=== PATIENT | female | born 1940 | race Caucasian/White ===

== ENCOUNTER 2022-06-04 14:29 | Inpatient (IN) | payer OTHER ==
[~2022-06-04] VITALS: Ht 149.9 cm; Wt 51.3 kg
[2022-06-04 14:31] VITALS: BP_SYST 160
[2022-06-04] MEDS ORDERED: NACL 0.9% 1,000 ML IV ONE (16:45)
[2022-06-04 17:35] LABS: BILIRUBIN,URINE NEGATIVE (NEGATIVE); BLOOD, URINE 1+ (NEGATIVE); CLARITY/URINE CLEAR (CLEAR); COLOR,URINE YELLOW (YELLOW); GLUCOSE,URINE NEGATIVE (NEGATIVE); KETONES,URINE NEGATIVE (NEGATIVE); LEUKOCYTE ESTERASE ,URINE NEGATIVE (NEGATIVE); NITRITE, URINE NEGATIVE (NEGATIVE); PROTEIN URINE NEGATIVE (NEGATIVE)
[2022-06-04 18:22] LABS: BACTERIA,URINE None Seen /HPF (None Seen); MUCUS,URINE None Seen /LPF (None Seen); WBC,URINE 0-3 /HPF (0-3)
[2022-06-04 18:23] LABS: CALCIUM OXALATE CRYSTALS,UR 0-10 /HPF (None Seen)
[2022-06-04 19:02] LABS: HEMOGLOBIN 10.9 g/dL (12.0-16.0); MEAN CORPUSCULAR HEMOGLOBIN 30 pg (27-31); MEAN CORPUSCULAR HGB CONC 31 % (32-36); MEAN CORPUSCULAR VOLUME 96 fL (79.0-98.0); PLATELET COUNT (AUTO) 159 K/uL (130-430); RED BLOOD CELL COUNT(AUTO) 3.65 MIL/uL (4.2-6.2); RED CELL DISTRIBUTION WIDTH 18.7 % (9.0-15.0); WHITE BLOOD COUNT (AUTO) 28.3 K/uL (4.8-10.8)
[2022-06-04 19:25] LABS: ANION GAP 10 (5-15); CALCIUM 9.4 mg/dL (8.4-11.0); CHLORIDE 107 mmol/L (98-107); CREATININE 0.83 mg/dL (0.55-1.30); GLUCOSE 94 mg/dL (70-99); UREA NITROGEN, BLOOD 14 mg/dL (8-21)
[2022-06-04 19:31] LABS: ALANINE AMINOTRANSFERASE 10 U/L (12-78); ALBUMIN 3.3 g/dL (3.4-4.8); ASPARTATE AMINOTRANSFERASE 17 U/L (10-37); TOTAL BILIRUBIN 1.3 mg/dL (0.0-1.0)
[2022-06-04 19:37] LABS: BAND % (MANUAL) 2 % (0-6); BASOPHILS % (MANUAL) 0 % (0-2); EOSINOPHILS % (MANUAL) 0 % (0-7); LYMPHOCYTES % (MANUAL) 5 % (20-46); MONOCYTES % (MANUAL) 2 % (0-11)
[2022-06-04 19:39] LABS: ATYPICAL LYMPHOCYTES % 81 % (0-0)
[2022-06-04] MEDS ORDERED: MEROPENEM 1 GM IVPB PREMIX 50 ML IV ONE (20:15)
[2022-06-04] MEDS ORDERED: VANCOMYCIN HCL 1,000 MG in NS 250 ML IV ONE (20:15)
[2022-06-04 20:40] VITALS: BP_SYST 163
[2022-06-04] MEDS ORDERED: VANCOMYCIN HCL 1000 MG/VIAL IV ONE (21:25)
[2022-06-04] MEDS ORDERED: MEROPENEM 500 MG VIAL IV ONE (21:26)
[2022-06-04] MEDS ORDERED: ALBUTEROL SULFATE 0.083% 2.5 MG/3 ML VIAL.NEB INH PRN (22:15)
[2022-06-05 00:19] VITALS: BP_SYST 159
[2022-06-05 11:24] VITALS: BP_SYST 156
[2022-06-05] MEDS ORDERED: DIATR MEGLU/DIATRIZ SOD 30 ML SOLUTION PO ONE (12:33)
[2022-06-05 15:30] VITALS: BP_SYST 152
[2022-06-05] MEDS ORDERED: BENA10TA73 PO (18:12)
[2022-06-05] MEDS ORDERED: ATEN-41 PO (18:15)
[2022-06-05] MEDS ORDERED: ALLO300T2 PO (18:15)
[2022-06-05] MEDS ORDERED: IBRU420T PO (18:15)
[2022-06-05 20:00] VITALS: BP_SYST 177
[2022-06-05] MEDS ORDERED: ATENOLOL 25 MG TABLET(TENORMIN) PO ONE (20:30)
[2022-06-05] MEDS: cefTRIAXone 1 GM in D5W 50 ML IV SCH (20:54)
[2022-06-05] MEDS: NACL 0.9% 1,000 ML IV SCH (21:15)
[2022-06-06] VITALS: BP_SYST 169
[2022-06-06] MEDS: NACL 0.9% 1,000 ML IV SCH ×2 (05:00→15:59)
[2022-06-06 07:10] LABS: BASOPHILS # (AUTO) 0.2 K/uL (0.0-0.2); BASOPHILS % (AUTO) 0.7 % (0.0-2.0); EOSINOPHILS # (AUTO) 0.2 K/uL (0.0-0.4); EOSINOPHILS % (AUTO) 0.8 % (0.0-4.0); HEMATOCRIT 32.3 % (36-48); HEMOGLOBIN 10.3 g/dL (12.0-16.0); LYMPHOCYTES # (AUTO) 18.4 K/uL (1.0-5.5); MEAN CORPUSCULAR HEMOGLOBIN 30 pg (27-31); MEAN CORPUSCULAR HGB CONC 32 % (32-36); MEAN CORPUSCULAR VOLUME 95 fL (79.0-98.0); MONOCYTES # (AUTO) 0.3 K/uL (0.0-1.0); MONOCYTES % (AUTO) 1.6 % (1.7-9.3); NEUTROPHILS # (AUTO) 2.1 K/uL (1.8-7.7); NEUTROPHILS % (AUTO) 9.7 % (40.0-70.0); PLATELET COUNT (AUTO) 163 K/uL (130-430); RED BLOOD CELL COUNT(AUTO) 3.41 MIL/uL (4.2-6.2); RED CELL DISTRIBUTION WIDTH 18.8 % (9.0-15.0); WHITE BLOOD COUNT (AUTO) 21.1 K/uL (4.8-10.8)
[2022-06-06 07:25] LABS: ANION GAP 13 (5-15); CALCIUM 8.3 mg/dL (8.4-11.0); CHLORIDE 107 mmol/L (98-107); CREATININE 0.93 mg/dL (0.55-1.30); GLUCOSE 73 mg/dL (70-99); UREA NITROGEN, BLOOD 14 mg/dL (8-21)
[2022-06-06 08:07] VITALS: BP_SYST 139
[2022-06-06 08:26] VITALS: BP_SYST 173
[2022-06-06 08:46] LABS: LYMPHOCYTES % (AUTO) 87.2 % (20.5-51.5)
[2022-06-06] MEDS ORDERED: BENAZEPRIL HCL Non-Formulary 10 MG TABLET PO SCH (09:00)
[2022-06-06] MEDS ORDERED: POTASSIUM CHLORIDE 20 MEQ/PKT PACKET PO ONE (10:45)
[2022-06-06 11:23] VITALS: BP_SYST 158
[2022-06-06 15:26] VITALS: BP_SYST 161
[2022-06-06 20:00] VITALS: BP_SYST 162
[2022-06-06] MEDS: cefTRIAXone 1 GM in D5W 50 ML IV SCH (20:21)
[2022-06-06] MEDS: ALLOPURINOL 300 MG TABLET (ZYLOPRIM) PO SCH (20:22)
[2022-06-06] MEDS: LISINOPRIL 10 MG TABLET (PRINIVIL) PO SCH (20:22)
[2022-06-06] MEDS: ATENOLOL 25 MG TABLET(TENORMIN) PO SCH (20:22)
[2022-06-07] VITALS: BP_SYST 159
[2022-06-07] MEDS: NACL 0.9% 1,000 ML IV SCH ×3 (01:00→21:00)
[2022-06-07 05:32] LABS: BILIRUBIN,URINE NEGATIVE (NEGATIVE); CLARITY/URINE CLEAR (CLEAR); COLOR,URINE YELLOW (YELLOW); GLUCOSE,URINE NEGATIVE (NEGATIVE); KETONES,URINE 2+ (NEGATIVE); LEUKOCYTE ESTERASE ,URINE NEGATIVE (NEGATIVE); NITRITE, URINE NEGATIVE (NEGATIVE); PROTEIN URINE NEGATIVE (NEGATIVE); UROBILINOGEN,URINE 0.2 (0.2-1.0)
[2022-06-07 05:37] LABS: BLOOD, URINE TRACE (NEGATIVE)
[2022-06-07 05:40] LABS: BACTERIA,URINE None Seen /HPF (None Seen); WBC,URINE 0-3 /HPF (0-3)
[2022-06-07 07:43] LABS: BASOPHILS # (AUTO) 0.1 K/uL (0.0-0.2); BASOPHILS % (AUTO) 0.4 % (0.0-2.0); EOSINOPHILS # (AUTO) 0.1 K/uL (0.0-0.4); EOSINOPHILS % (AUTO) 0.8 % (0.0-4.0); HEMATOCRIT 32.7 % (36-48); HEMOGLOBIN 10.5 g/dL (12.0-16.0); LYMPHOCYTES # (AUTO) 14.1 K/uL (1.0-5.5); LYMPHOCYTES % (AUTO) 83.4 % (20.5-51.5); MEAN CORPUSCULAR HEMOGLOBIN 30 pg (27-31); MEAN CORPUSCULAR HGB CONC 32 % (32-36); MEAN CORPUSCULAR VOLUME 95 fL (79.0-98.0); MONOCYTES # (AUTO) 0.4 K/uL (0.0-1.0); MONOCYTES % (AUTO) 2.1 % (1.7-9.3); NEUTROPHILS # (AUTO) 2.3 K/uL (1.8-7.7); NEUTROPHILS % (AUTO) 13.3 % (40.0-70.0); PLATELET COUNT (AUTO) 175 K/uL (130-430); RED BLOOD CELL COUNT(AUTO) 3.45 MIL/uL (4.2-6.2); RED CELL DISTRIBUTION WIDTH 18.1 % (9.0-15.0); RETICULOCYTE COUNT 2.1 % (0.5-1.5)
[2022-06-07 07:57] LABS: ANION GAP 9 (5-15); CHLORIDE 108 mmol/L (98-107); CREATININE 0.75 mg/dL (0.55-1.30); GLUCOSE 77 mg/dL (70-99); UREA NITROGEN, BLOOD 12 mg/dL (8-21)
[2022-06-07 08:10] VITALS: BP_SYST 165
[2022-06-07] MEDS: ALLOPURINOL 300 MG TABLET (ZYLOPRIM) PO SCH (08:50)
[2022-06-07] MEDS: ATENOLOL 25 MG TABLET(TENORMIN) PO SCH (08:51)
[2022-06-07] MEDS: LISINOPRIL 10 MG TABLET (PRINIVIL) PO SCH (08:51)
[2022-06-07] MEDS ORDERED: POTASSIUM CHLORIDE 20 MEQ/PKT PACKET PO ONE (11:00)
[2022-06-07 11:36] LABS: TOTAL IRON BIND. CAPACITY 251 ug/dL (250-450)
[2022-06-07 11:38] VITALS: BP_SYST 160
[2022-06-07 15:22] VITALS: BP_SYST 146
[2022-06-07 20:00] VITALS: BP_SYST 159
[2022-06-07] MEDS: cefTRIAXone 1 GM in D5W 50 ML IV SCH (20:01)
[2022-06-08 00:21] VITALS: BP_SYST 165
[2022-06-08] MEDS: NACL 0.9% 1,000 ML IV SCH (06:47)
[2022-06-08 07:06] LABS: BASOPHILS % (AUTO) 0.3 % (0.0-2.0); EOSINOPHILS # (AUTO) 0.2 K/uL (0.0-0.4); EOSINOPHILS % (AUTO) 1.5 % (0.0-4.0); HEMATOCRIT 31.2 % (36-48); HEMOGLOBIN 10.1 g/dL (12.0-16.0); LYMPHOCYTES # (AUTO) 9.9 K/uL (1.0-5.5); LYMPHOCYTES % (AUTO) 81.6 % (20.5-51.5); MEAN CORPUSCULAR HEMOGLOBIN 30 pg (27-31); MEAN CORPUSCULAR HGB CONC 32 % (32-36); MEAN CORPUSCULAR VOLUME 94 fL (79.0-98.0); MONOCYTES # (AUTO) 0.3 K/uL (0.0-1.0); MONOCYTES % (AUTO) 2.5 % (1.7-9.3); NEUTROPHILS # (AUTO) 1.7 K/uL (1.8-7.7); PLATELET COUNT (AUTO) 170 K/uL (130-430); RED BLOOD CELL COUNT(AUTO) 3.32 MIL/uL (4.2-6.2); RED CELL DISTRIBUTION WIDTH 18.6 % (9.0-15.0); WHITE BLOOD COUNT (AUTO) 12.1 K/uL (4.8-10.8)
[2022-06-08 07:24] LABS: ANION GAP 8 (5-15); CALCIUM 8.5 mg/dL (8.4-11.0); CHLORIDE 111 mmol/L (98-107); CREATININE 0.78 mg/dL (0.55-1.30); GLUCOSE 90 mg/dL (70-99); UREA NITROGEN, BLOOD 12 mg/dL (8-21)
[2022-06-08 09:19] VITALS: BP_SYST 165
[2022-06-08] MEDS: ALLOPURINOL 300 MG TABLET (ZYLOPRIM) PO SCH (09:41)
[2022-06-08] MEDS: ATENOLOL 25 MG TABLET(TENORMIN) PO SCH (09:42)
[2022-06-08] MEDS: lisinopriL 20 MG TABLET PO SCH (09:42)
[2022-06-08] MEDS ORDERED: POTASSIUM CHLORIDE 20 MEQ/PKT PACKET PO ONE (10:15)
[2022-06-08 11:23] VITALS: BP_SYST 156
[2022-06-08 14:35] LABS: NEUTROPHILS % (AUTO) 14.1 % (40.0-70.0)
[2022-06-08 15:24] VITALS: BP_SYST 146
[2022-06-08] MEDS: cefTRIAXone 1 GM in D5W 50 ML IV SCH (20:53)
[2022-06-09 01:06] LABS: FOLATE (FOLIC ACID) 9.7 ng/mL (>3.0)
[2022-06-09 01:14] VITALS: BP_SYST 157
[2022-06-09] MEDS: lisinopriL 20 MG TABLET PO SCH (10:31)
[2022-06-09] MEDS: ATENOLOL 25 MG TABLET(TENORMIN) PO SCH (10:36)
[2022-06-09] MEDS: ALLOPURINOL 300 MG TABLET (ZYLOPRIM) PO SCH (10:37)
[2022-06-09 14:06] LABS: BASOPHILS # (AUTO) 0.1 K/uL (0.0-0.2); BASOPHILS % (AUTO) 0.7 % (0.0-2.0); EOSINOPHILS # (AUTO) 0.1 K/uL (0.0-0.4); EOSINOPHILS % (AUTO) 0.4 % (0.0-4.0); HEMATOCRIT 33.8 % (36-48); HEMOGLOBIN 10.8 g/dL (12.0-16.0); LYMPHOCYTES # (AUTO) 9.7 K/uL (1.0-5.5); MEAN CORPUSCULAR HEMOGLOBIN 30 pg (27-31); MEAN CORPUSCULAR HGB CONC 32 % (32-36); MEAN CORPUSCULAR VOLUME 93 fL (79.0-98.0); MONOCYTES # (AUTO) 0.4 K/uL (0.0-1.0); MONOCYTES % (AUTO) 3.3 % (1.7-9.3); NEUTROPHILS # (AUTO) 2.3 K/uL (1.8-7.7); NEUTROPHILS % (AUTO) 18.6 % (40.0-70.0); PLATELET COUNT (AUTO) 184 K/uL (130-430); RED BLOOD CELL COUNT(AUTO) 3.63 MIL/uL (4.2-6.2); RED CELL DISTRIBUTION WIDTH 18.3 % (9.0-15.0); WHITE BLOOD COUNT (AUTO) 12.6 K/uL (4.8-10.8)
[2022-06-09 14:37] LABS: ANION GAP 9 (5-15); CALCIUM 8.8 mg/dL (8.4-11.0); CHLORIDE 105 mmol/L (98-107); CREATININE 0.83 mg/dL (0.55-1.30); GLUCOSE 117 mg/dL (70-99); UREA NITROGEN, BLOOD 12 mg/dL (8-21)
[2022-06-09 15:22] VITALS: BP_SYST 158
[2022-06-09 20:00] VITALS: BP_SYST 156
[2022-06-09] MEDS: cefTRIAXone 1 GM in D5W 50 ML IV SCH (20:26)
[2022-06-10 00:05] VITALS: BP_SYST 185
[2022-06-10 04:00] VITALS: BP_SYST 138
[2022-06-10 07:00] LABS: BASOPHILS # (AUTO) 0.1 K/uL (0.0-0.2); BASOPHILS % (AUTO) 0.4 % (0.0-2.0); EOSINOPHILS # (AUTO) 0.1 K/uL (0.0-0.4); EOSINOPHILS % (AUTO) 0.5 % (0.0-4.0); HEMOGLOBIN 10.3 g/dL (12.0-16.0); LYMPHOCYTES # (AUTO) 9.3 K/uL (1.0-5.5); MEAN CORPUSCULAR HEMOGLOBIN 30 pg (27-31); MEAN CORPUSCULAR HGB CONC 32 % (32-36); MEAN CORPUSCULAR VOLUME 93 fL (79.0-98.0); MONOCYTES # (AUTO) 0.5 K/uL (0.0-1.0); MONOCYTES % (AUTO) 4.2 % (1.7-9.3); NEUTROPHILS % (AUTO) 16.9 % (40.0-70.0); PLATELET COUNT (AUTO) 190 K/uL (130-430); RED BLOOD CELL COUNT(AUTO) 3.45 MIL/uL (4.2-6.2); RED CELL DISTRIBUTION WIDTH 18.2 % (9.0-15.0)
[2022-06-10 07:28] LABS: ANION GAP 10 (5-15); CALCIUM 8.2 mg/dL (8.4-11.0); CHLORIDE 103 mmol/L (98-107); CREATININE 0.82 mg/dL (0.55-1.30); GLUCOSE 109 mg/dL (70-99); UREA NITROGEN, BLOOD 13 mg/dL (8-21)
[2022-06-10] MEDS: ALLOPURINOL 300 MG TABLET (ZYLOPRIM) PO SCH (09:18)
[2022-06-10] MEDS: lisinopriL 20 MG TABLET PO SCH (09:19)
[2022-06-10] MEDS: ATENOLOL 25 MG TABLET(TENORMIN) PO SCH (09:20)
[2022-06-10 11:24] VITALS: BP_SYST 125
[2022-06-10 15:34] VITALS: BP_SYST 130
[2022-06-10 20:36] VITALS: BP_SYST 156
[2022-06-10] MEDS: cefTRIAXone 1 GM in D5W 50 ML IV SCH (21:47)
[2022-06-11 00:09] VITALS: BP_SYST 147
[2022-06-11 06:52] LABS: BASOPHILS % (AUTO) 0.3 % (0.0-2.0); EOSINOPHILS # (AUTO) 0.2 K/uL (0.0-0.4); EOSINOPHILS % (AUTO) 1.4 % (0.0-4.0); HEMATOCRIT 34.9 % (36-48); HEMOGLOBIN 11.2 g/dL (12.0-16.0); LYMPHOCYTES # (AUTO) 9.9 K/uL (1.0-5.5); LYMPHOCYTES % (AUTO) 79.2 % (20.5-51.5); MEAN CORPUSCULAR HEMOGLOBIN 30 pg (27-31); MEAN CORPUSCULAR HGB CONC 32 % (32-36); MEAN CORPUSCULAR VOLUME 93 fL (79.0-98.0); MONOCYTES # (AUTO) 0.4 K/uL (0.0-1.0); MONOCYTES % (AUTO) 3.5 % (1.7-9.3); NEUTROPHILS # (AUTO) 1.9 K/uL (1.8-7.7); NEUTROPHILS % (AUTO) 15.6 % (40.0-70.0); PLATELET COUNT (AUTO) 205 K/uL (130-430); RED BLOOD CELL COUNT(AUTO) 3.76 MIL/uL (4.2-6.2); RED CELL DISTRIBUTION WIDTH 17.9 % (9.0-15.0); WHITE BLOOD COUNT (AUTO) 12.5 K/uL (4.8-10.8)
[2022-06-11 07:58] LABS: ANION GAP 8 (5-15); CHLORIDE 106 mmol/L (98-107); CREATININE 0.75 mg/dL (0.55-1.30); GLUCOSE 90 mg/dL (70-99); UREA NITROGEN, BLOOD 11 mg/dL (8-21)
[2022-06-11 08:49] LABS: C-REACTIVE PROTEIN QUANT < 0.2 mg/dL (0-0.5)
[2022-06-11] MEDS: ATENOLOL 25 MG TABLET(TENORMIN) PO SCH ×2 (09:21→09:29)
[2022-06-11] MEDS: ALLOPURINOL 300 MG TABLET (ZYLOPRIM) PO SCH (09:27)
[2022-06-11] MEDS: lisinopriL 20 MG TABLET PO SCH (09:30)
[2022-06-11 10:39] LABS: ERYTHROCYTE SEDIMENTATION RATE 9 MM/HR (0-20)
[2022-06-11 11:27] VITALS: BP_SYST 141
[2022-06-11] MEDS ORDERED: POTASSIUM CHLORIDE 20 MEQ/PKT PACKET PO ONE (14:00)
[2022-06-11 15:15] VITALS: BP_SYST 136
[2022-06-11 20:00] VITALS: BP_SYST 126
[2022-06-11] MEDS: cefTRIAXone 1 GM in D5W 50 ML IV SCH (21:00)
[2022-06-12 00:05] VITALS: BP_SYST 128
[2022-06-12 06:57] LABS: BASOPHILS % (AUTO) 0.4 % (0.0-2.0); EOSINOPHILS # (AUTO) 0.2 K/uL (0.0-0.4); EOSINOPHILS % (AUTO) 1.5 % (0.0-4.0); HEMATOCRIT 33.9 % (36-48); HEMOGLOBIN 10.9 g/dL (12.0-16.0); LYMPHOCYTES # (AUTO) 8.7 K/uL (1.0-5.5); LYMPHOCYTES % (AUTO) 76.1 % (20.5-51.5); MEAN CORPUSCULAR HEMOGLOBIN 30 pg (27-31); MEAN CORPUSCULAR HGB CONC 32 % (32-36); MEAN CORPUSCULAR VOLUME 93 fL (79.0-98.0); MONOCYTES # (AUTO) 0.6 K/uL (0.0-1.0); MONOCYTES % (AUTO) 4.9 % (1.7-9.3); NEUTROPHILS % (AUTO) 17.1 % (40.0-70.0); PLATELET COUNT (AUTO) 222 K/uL (130-430); RED BLOOD CELL COUNT(AUTO) 3.64 MIL/uL (4.2-6.2); RED CELL DISTRIBUTION WIDTH 18.6 % (9.0-15.0); WHITE BLOOD COUNT (AUTO) 11.5 K/uL (4.8-10.8)
[2022-06-12 07:39] LABS: ALANINE AMINOTRANSFERASE 14 U/L (12-78); ANION GAP 9 (5-15); ASPARTATE AMINOTRANSFERASE 14 U/L (10-37); C-REACTIVE PROTEIN QUANT 0.3 mg/dL (0-0.5); CALCIUM 8.9 mg/dL (8.4-11.0); CHLORIDE 104 mmol/L (98-107); CREATININE 0.85 mg/dL (0.55-1.30); GLUCOSE 97 mg/dL (70-99); TOTAL BILIRUBIN 0.4 mg/dL (0.0-1.0); UREA NITROGEN, BLOOD 16 mg/dL (8-21)
[2022-06-12 08:15] VITALS: BP_SYST 145
[2022-06-12] MEDS: ALLOPURINOL 300 MG TABLET (ZYLOPRIM) PO SCH (08:23)
[2022-06-12] MEDS: lisinopriL 20 MG TABLET PO SCH (08:23)
[2022-06-12 11:41] LABS: ERYTHROCYTE SEDIMENTATION RATE 13 MM/HR (0-20)
[2022-06-12 13:27] VITALS: BP_SYST 118
[2022-06-12 18:10] VITALS: BP_SYST 137
[2022-06-12 20:00] VITALS: BP_SYST 124
[2022-06-12] MEDS ORDERED: cefTRIAXone 1 GM in D5W 50 ML IV SCH (21:00)
[2022-06-12 23:45] VITALS: BP_SYST 123
[2022-06-13 08:36] VITALS: BP_SYST 123
[2022-06-13] MEDS: ALLOPURINOL 300 MG TABLET (ZYLOPRIM) PO SCH (08:55)
[2022-06-13] MEDS: lisinopriL 20 MG TABLET PO SCH (08:56)
[2022-06-13] MEDS: ATENOLOL 25 MG TABLET(TENORMIN) PO SCH (08:56)
[2022-06-13 11:29] VITALS: BP_SYST 142
[2022-06-13 15:08] VITALS: BP_SYST 142
[2022-06-13 15:40] VITALS: BP_SYST 136
== END 2022-06-13 16:51 | disposition home health service (06) | DRG 871 ==
LOC: SED 14:29 → STU 20:14 → SMU 06-06 13:24
PROVIDERS: ADMIT Internal Medicine; ATTEND Internal Medicine
DX: A41.9 Sepsis, unspecified organism (principal); G93.41 Metabolic encephalopathy; J69.0 Pneumonitis due to inhalation of food and vomit; C91.10 Chronic lymphocytic leukemia of B-cell type not having achieved remission; M48.56XA Collapsed vertebra, not elsewhere classified, lumbar region, initial encounter for fracture; N39.0 Urinary tract infection, site not specified; J44.0 Chronic obstructive pulmonary disease with (acute) lower respiratory infection; R65.10 Systemic inflammatory response syndrome (SIRS) of non-infectious origin without acute organ dysfunction; I10 Essential (primary) hypertension; F03.90 Unspecified dementia, unspecified severity, without behavioral disturbance, psychotic disturbance, mood disturbance, and anxiety; R53.81 Other malaise; J98.4 Other disorders of lung; M10.9 Gout, unspecified; Z20.822 Contact with and (suspected) exposure to COVID-19; Z90.49 Acquired absence of other specified parts of digestive tract; Z91.09 Other allergy status, other than to drugs and biological substances
CPT/HCPCS: 36415; 70450-TC; 71045; 71250-TC; 76376; 80048; 80053; 81000; 82272; 82607; 82728; 82746; 83540; 83550; 83605; 85007; 85025; 85027; 85044; 85651-TC; 86140; 87040; 92610-GN; 93005; 94760; 96361; 96365; 96366; 96367; 97110-GO; 97110-GP; 97116-GP; 97530-GO; 97530-GP; 97535-GO; 99285; G0378; J0696; J2185; J3370; J7030; J7060; Q9964; Q9967